=== PATIENT | female | born 1970 | race American Indian/Alaskan Native ===

== ENCOUNTER 2018-08-23 14:47 | Emergency (ER) | payer OTHER ==
[2018-08-23 15:14] VITALS: O2SAT 100
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
[2018-08-23] MEDS ORDERED: Lidocaine 5% Patch TD STA (15:48)
[2018-08-23 16:46] VITALS: BP 99/55; PULSE 57; RESP 18; TEMP 99
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
--- NOTE | 2018-08-23 18:03 | RAD ---
Date of service: 08/23/2018 PROCEDURE: Radiographs of the Lumbar Spine. HISTORY: pain COMPARISON: No prior. FINDINGS: BONES: Normal alignment. No listhesis. No fracture. DISC SPACES: Unremarkable. OTHER FINDINGS: Constipation without fecal impaction or obstruction. IMPRESSION: Unremarkable radiographs of the lumbar spine.
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
== END 2018-08-23 17:21 | disposition home or self-care (01) ==
LOC: ED 14:47
DX: M54.5 Low back pain (principal); M79.604 Pain in right leg; M79.605 Pain in left leg; V49.40XA Driver injured in collision with unspecified motor vehicles in traffic accident, initial encounter; Y92.410 Unspecified street and highway as the place of occurrence of the external cause